=== PATIENT | female | born 1990 | race Asian ===

== ENCOUNTER 2020-04-26 13:29 | Inpatient (IN) | payer BC ==
[~2020-04-26] VITALS: Ht 167.6 cm; Wt 69.5 kg
[2020-04-26 14:16] LABS: MICROSCOPIC NOT IND
[2020-04-26 15:31] VITALS: BP 112/69
[2020-04-26] MEDS ORDERED: MISOPROSTOL 200 MCG TABLET ONE (16:13)
[2020-04-26] MEDS ORDERED: LIDOCAINE 1%, 20ML ONE (16:13)
[2020-04-26] MEDS ORDERED: NEWBORN KIT ONE (16:13)
[2020-04-26] MEDS ORDERED: OXYTOCIN 30U/ 0.9% NaCL 500ML 500 ML ONE (16:14)
[2020-04-26] MEDS ORDERED: FENTANYL PF 100 MCG/2ML IVPush PRN (16:30)
[2020-04-26] MEDS ORDERED: ONDANSETRON 2MG/ML, 2ML IVPush PRN (16:30)
[2020-04-26] MEDS ORDERED: TERBUTALINE 1 MG/ML, 1ML SQ PRN (16:30)
[2020-04-26] MEDS ORDERED: TERBUTALINE 1 MG/ML, 1ML IVPush PRN (16:30)
[2020-04-26] MEDS ORDERED: CALCIUM CARBONATE 500 MG TAB.CHEW PO PRN (16:30)
[2020-04-26] MEDS ORDERED: FENTANYL PF 100 MCG/2ML IV PRN (16:30)
[2020-04-26] MEDS ORDERED: OXYTOCIN 30U/ 0.9% NaCL 500ML 500 ML IV ONE (16:30)
[2020-04-26 16:40] LABS: BASOPHILS % (AUTO) 0 % (0-1); EOSINOPHILS % (AUTO) 1 % (1-7); LYMPHOCYTES % (AUTO) 16 % (22-44); MEAN CORPUSCULAR HEMOGLOBIN 29.1 pg (27.0-34.8); MEAN CORPUSCULAR HGB CONC 33.5 g/dL (32.4-35.8); MEAN PLATELET VOLUME 9.4 fL (7.4-10.4); MONOCYTES % (AUTO) 7 % (2-9); NEUTROPHILS % (AUTO) 75 % (42-75); PLATELET COUNT 219 x10^3/uL (130-400); RED BLOOD COUNT 4.41 x10^6/uL (3.82-5.3); RED CELL DISTRIBUTION WIDTH 14.3 % (9.6-15.2)
[2020-04-26 16:43] LABS: MD NO
[2020-04-26] MEDS: LACTATED RINGERS 1,000 ML IV SCH (19:00)
[2020-04-26] MEDS ORDERED: FENTANYL PF 100 MCG/2ML ONE (21:22)
[2020-04-26] MEDS ORDERED: OXYTOCIN 30U/ 0.9% NaCL 500ML 500 ML IV PRN (21:30)
[2020-04-26] MEDS: D5%-LACTATED RINGERS 1,000 ML IV SCH (21:30)
[2020-04-26] MEDS ORDERED: BUPIVACAINE 0.25% ONE (22:07)
[2020-04-26] MEDS ORDERED: FENTANYL/BUPIV./NS/PF 250 ML EPIDCONT ONE (22:07)
[2020-04-26] MEDS ORDERED: FENTANYL/BUPIV./NS/PF 250 ML EPIDCONT SCH (22:30)
[2020-04-26] MEDS ORDERED: LACTATED RINGERS 1,000 ML IV SCH (22:30)
[2020-04-26] MEDS ORDERED: NALOXONE 0.4 MG/ML, 1ML IVPush PRN (22:30)
[2020-04-26] MEDS ORDERED: EPHEDRINE 50 MG/ML, 1ML IVPush PRN (22:30)
[2020-04-26] MEDS ORDERED: LACTATED RINGERS 1,000 ML IVBOLUS PRN (22:30)
[2020-04-27] MEDS ORDERED: OXYTOCIN 30U/ 0.9% NaCL 500ML 500 ML ONE (02:45)
[2020-04-27] MEDS ORDERED: ONDANSETRON 2MG/ML, 2ML IV PRN (04:00)
[2020-04-27] MEDS ORDERED: METHYLERGONOVINE 0.2 MG/ML IM PRN (04:00)
[2020-04-27] MEDS ORDERED: SIMETHICONE 80 MG CHEW TAB PO PRN (04:00)
[2020-04-27] MEDS ORDERED: MISOPROSTOL 200 MCG TABLET PR PRN (04:00)
[2020-04-27] MEDS ORDERED: BISACODYL 10 MG SUPP PR PRN (04:00)
[2020-04-27] MEDS: OXYTOCIN 30U/ 0.9% NaCL 500ML 500 ML IV SCH ×2 (04:00→14:00)
[2020-04-27] MEDS ORDERED: HYDROcodone/APAP 5/325 TABLET PO PRN ×2 (04:00)
[2020-04-27 04:50] VITALS: BP 117/70
[2020-04-27] MEDS: LACTATED RINGERS 1,000 ML IV SCH (05:30)
[2020-04-27] MEDS: D5%-LACTATED RINGERS 1,000 ML IV SCH (05:30)
[2020-04-27 07:24] VITALS: BP 101/62
[2020-04-27] MEDS: PRENATAL VIT/IRON/FA 1 EACH TABLET PO SCH (08:00)
[2020-04-27] MEDS: IBUPROFEN 600 MG TABLET PO PRN ×3 (08:01→23:48)
[2020-04-27] MEDS: DOCUSATE 100 MG CAPSULE PO PRN ×2 (08:01→23:48)
[2020-04-27 10:36] LABS: BASOPHILS % (AUTO) 1 % (0-1); EOSINOPHILS % (AUTO) 0 % (1-7); LYMPHOCYTES % (AUTO) 11 % (22-44); MEAN CORPUSCULAR HEMOGLOBIN 28.9 pg (27.0-34.8); MEAN CORPUSCULAR HGB CONC 33.4 g/dL (32.4-35.8); MEAN PLATELET VOLUME 9.1 fL (7.4-10.4); MONOCYTES % (AUTO) 6 % (2-9); NEUTROPHILS % (AUTO) 82 % (42-75); PLATELET COUNT 191 x10^3/uL (130-400); RED BLOOD COUNT 3.81 x10^6/uL (3.82-5.3); RED CELL DISTRIBUTION WIDTH 14.2 % (9.6-15.2)
[2020-04-27 10:41] LABS: MD NO
[2020-04-27 12:00] VITALS: BP 104/62
[2020-04-27 16:00] VITALS: BP 102/65
[2020-04-27 20:00] VITALS: BP 108/70
[2020-04-27 23:56] VITALS: BP 107/68
[2020-04-28 07:31] VITALS: BP 107/71
[2020-04-28] MEDS: PRENATAL VIT/IRON/FA 1 EACH TABLET PO SCH (08:49)
[2020-04-28] MEDS: IBUPROFEN 600 MG TABLET PO PRN ×3 (08:49→21:24)
[2020-04-28 19:05] VITALS: BP 111/76
[2020-04-28] MEDS: DOCUSATE 100 MG CAPSULE PO PRN (21:24)
[2020-04-29] MEDS: IBUPROFEN 600 MG TABLET PO PRN ×2 (03:27→13:10)
[2020-04-29 06:57] VITALS: BP 116/69
[2020-04-29] MEDS: PRENATAL VIT/IRON/FA 1 EACH TABLET PO SCH (08:44)
[2020-04-29] MEDS: DOCUSATE 100 MG CAPSULE PO PRN (08:44)
[2020-04-29] MEDS ORDERED: IBUP-1222 PO (10:01)
[2020-04-29 12:53] VITALS: BP 106/67
== END 2020-04-29 13:38 | disposition home or self-care (01) | DRG 807 ==
LOC: LDOP 13:29 → LDIP 16:06 → 2NW 04-27 04:33
PROVIDERS: ADMIT Obstetrics & Gynecology; ATTEND Obstetrics & Gynecology
PROC: 10E0XZZ Delivery of Products of Conception, External Approach (ICD-10-PCS; principal; 2020-04-27)
PROC: 0KQM0ZZ Repair Perineum Muscle, Open Approach (ICD-10-PCS; 2020-04-27)
PROC: 10907ZC Drainage of Amniotic Fluid, Therapeutic from Products of Conception, Via Natural or Artificial Opening (ICD-10-PCS; 2020-04-27)
PROC: 3E0R3BZ Introduction of Anesthetic Agent into Spinal Canal, Percutaneous Approach (ICD-10-PCS; 2020-04-27)
PROC: 00HU33Z Insertion of Infusion Device into Spinal Canal, Percutaneous Approach (ICD-10-PCS; 2020-04-27)
DX: O69.81X0 Labor and delivery complicated by cord around neck, without compression, not applicable or unspecified (principal); Z37.0 Single live birth; Z3A.39 39 weeks gestation of pregnancy; O70.1 Second degree perineal laceration during delivery; Z20.822 Contact with and (suspected) exposure to COVID-19
CPT/HCPCS: 36415; 81003; 85025; 86592; 86850; 86900; 87086; 87635; G0378; J3010; J2590; J7120